=== PATIENT | female | born 1975 | race Caucasian/White ===

== ENCOUNTER 2019-11-23 15:03 | Emergency (ER) | payer OTHER ==
[~2019-11-23] VITALS: Ht 167.6 cm; Wt 75.7 kg
[~2019-11-23 15:03] MED LIST: ORPH100T PO; ROBAXIN-750750 MG PO; SKELAXIN800 MG PO; TRAMADOL HCL50 MG PO
== END 2019-11-23 18:29 | disposition home or self-care (01) ==
LOC: ER 15:03
DX: S00.83XA Contusion of other part of head, initial encounter (principal); S60.512A Abrasion of left hand, initial encounter; S60.511A Abrasion of right hand, initial encounter; M54.2 Cervicalgia; R51 Headache; M19.142 Post-traumatic osteoarthritis, left hand; M19.141 Post-traumatic osteoarthritis, right hand; V19.88XA Pedal cyclist (driver) (passenger) injured in other specified transport accidents, initial encounter; Y93.55 Activity, bike riding; Y92.413 State road as the place of occurrence of the external cause; Y99.8 Other external cause status